=== PATIENT | male | born 1950 | race Caucasian/White ===

== ENCOUNTER 2022-01-25 11:46 | Inpatient (IN) ==
[2022-01-25] MEDS ORDERED: polyethylene glycoL 3350 17 GM POWD.PACK PO PRN (15:58)
[2022-01-28] MEDS ORDERED: Artificial Tears SOLN 15 ML BOTTLE BOTH EYES PRN (15:38)
[2022-01-28] MEDS: Metoprolol XL (24 HR) Succ 50 MG TAB.ER.24H PO SCH ×4 (16:03→21:12)
[2022-01-28] MEDS: Apixaban 5 MG TABLET PO SCH ×4 (16:03→21:12)
[2022-01-28] MEDS: Ondansetron ODT 4 MG TAB.RAPDIS SL PRN (17:17)
[2022-01-29] MEDS: Ondansetron ODT 4 MG TAB.RAPDIS SL PRN ×2 (00:13→20:40)
[2022-01-29] MEDS: *HR* Buprenorphine HCl 8 MG TAB.SUBL SL SCH (09:35)
[2022-01-29] MEDS: lisinopriL 20 MG TABLET PO SCH (09:35)
[2022-01-29] MEDS: Apixaban 5 MG TABLET PO SCH ×2 (09:35→20:37)
[2022-01-29] MEDS: Metoprolol XL (24 HR) Succ 50 MG TAB.ER.24H PO SCH ×2 (09:35→20:37)
[2022-01-29] MEDS: Budesonide/Formoterol 160/4.5 1 PUFF INH IH SCH (22:26)
[2022-01-30] MEDS: Budesonide/Formoterol 160/4.5 1 PUFF INH IH SCH ×2 (09:41→22:20)
[2022-01-30] MEDS: lisinopriL 20 MG TABLET PO SCH (10:35)
[2022-01-30] MEDS: Apixaban 5 MG TABLET PO SCH ×2 (10:35→23:28)
[2022-01-30] MEDS: Metoprolol XL (24 HR) Succ 50 MG TAB.ER.24H PO SCH ×2 (10:35→23:28)
[2022-01-30] MEDS: *HR* Buprenorphine HCl 8 MG TAB.SUBL SL SCH (10:36)
[2022-01-30] MEDS: Ondansetron ODT 4 MG TAB.RAPDIS SL PRN (23:29)
[2022-01-31] MEDS: Metoprolol XL (24 HR) Succ 50 MG TAB.ER.24H PO SCH ×2 (08:21→21:47)
[2022-01-31] MEDS: *HR* Buprenorphine HCl 8 MG TAB.SUBL SL SCH (08:22)
[2022-01-31] MEDS: lisinopriL 20 MG TABLET PO SCH (08:22)
[2022-01-31] MEDS: Apixaban 5 MG TABLET PO SCH ×2 (08:22→21:47)
[2022-01-31] MEDS: Budesonide/Formoterol 160/4.5 1 PUFF INH IH SCH ×2 (09:13→22:05)
[2022-02-01 04:02] VITALS: RESP 18
[2022-02-01 07:04] VITALS: TEMP 98.1
[2022-02-01 08:01] LABS: Hematocrit 28.4 % (37.5-50.1); Hemoglobin 8.6 g/dL (12.9-16.9); Mean Corpuscular HGB Conc 30.3 g/dL (31.6-35.5); Mean Corpuscular Hemoglobin 29.6 pg (28.0-33.3); Mean Corpuscular Volume 97.6 fL (83.0-100.0); Mean Platelet Volume 10.8 fL (9.4-12.4); Platelet Count 172 K/mcL (140-400); Red Blood Count 2.91 M/mcL (4.19-5.50); Red Cell Distribution Width 16.4 % (11.5-14.5); White Blood Count 4.3 K/mcL (4.3-11.1)
[2022-02-01 08:07] LABS: Potassium 3.7 mEq/L (3.5-5.1)
[2022-02-01 08:21] VITALS: BP 130/75; PULSE 82; O2SAT 99
[2022-02-01] MEDS: Metoprolol XL (24 HR) Succ 50 MG TAB.ER.24H PO SCH (08:22)
[2022-02-01] MEDS: lisinopriL 20 MG TABLET PO SCH (08:22)
[2022-02-01] MEDS: *HR* Buprenorphine HCl 8 MG TAB.SUBL SL SCH (08:22)
[2022-02-01] MEDS: Apixaban 5 MG TABLET PO SCH (08:22)
[2022-02-01] MEDS: Budesonide/Formoterol 160/4.5 1 PUFF INH IH SCH (08:29)
== END 2022-02-01 13:40 | disposition home or self-care (01) | DRG 812 ==
LOC: INPPIK 01-28 15:28
PROVIDERS: ADMIT Internal Medicine; ATTEND Internal Medicine